=== PATIENT | female | born 1970 | race Caucasian/White ===

== ENCOUNTER 2020-05-02 13:15 | Inpatient (IN) | payer OTHER ==
[2020-05-06 14:42] VITALS: BMI 23.3
[2020-05-07] MEDS ORDERED: Famotidine/PF 20 mg/2ml Vial ONE (06:05)
[2020-05-07] MEDS ORDERED: CeleCOXIB 100 MG CAP ONE (06:05)
[2020-05-07] MEDS ORDERED: Gabapentin 300 MG CAP ONE (06:05)
[2020-05-07 06:53] LABS: #Basophils 0.1 10x3/uL (0.0-0.2); #Eosinphils 0.1 10x3/uL (0.0-0.5); #Monocytes 0.5 10x3/uL (0.0-1.1); #Neutrophils 4.3 10x3/uL (1.5-8.4); %Basophils 0.9 % (0.0-2.0); %Eosinophils 1.9 % (0.0-6.0); %Lymphocytes 28.4 % (18.0-47.0); %Monocytes 6.9 % (0.0-10.0); %Neutrophils 61.8 % (40.0-75.0); Mean Corpuscular HGB CONC 34.2 g/dL (32.0-36.0); Mean Corpuscular Hemoglobin 32.2 pg (27.0-33.0); Mean Corpuscular Volume 94.2 fl (81.6-98.3); Mean Platelet Volume 11.6 fl (7.4-10.4); Platelet Count 182 10x3/uL (150-450); RBC Distribution Width 12.3 % (11.5-14.5); Red Blood Cell (RBC) Count 4.66 10x6/uL (3.90-5.03)
[2020-05-07] MEDS ORDERED: EPINEPHrine 1 MG/ML AMP ONE (06:56)
[2020-05-07] MEDS ORDERED: Bupivacaine PF 0.5% 30 ML VIAL ONE (06:56)
[2020-05-07] MEDS ORDERED: Lidocaine 1% PF 5 ML VIAL ONE (06:57)
[2020-05-07] MEDS ORDERED: Lidocaine 0.5%/Epinephrine 1:200,000 50 ml Vial ONE (06:57)
[2020-05-07] MEDS ORDERED: Dexamethasone 4 mg/ml Vial ONE (06:57)
[2020-05-07] MEDS ORDERED: Rocuronium Bromide 10 MG/ML (10ML VIAL) ONE (06:57)
[2020-05-07] MEDS ORDERED: Ondansetron PF 4 MG/2 ML Vial ONE (06:57)
[2020-05-07] MEDS ORDERED: PROPOFOL 20 ML ONE (06:57)
[2020-05-07] MEDS ORDERED: Fentanyl 250 MCG/5 ML VIAL ONE (06:57)
[2020-05-07] MEDS ORDERED: Midazolam HCl 2 mg/2 ml Vial ONE ×2 (06:57→07:16)
[2020-05-07] MEDS ORDERED: Lidocaine 1% w/Epinephrine 1:100K 20 ML VIAL ONE ×2 (06:58→10:52)
[2020-05-07 07:02] LABS: BHCG - Serum Negative (NEGATIVE); Pregs Control Background? CLEAR/WHITE (CLR/WHITE); Pregs Control Bar Appear? YES (CONTROL BAR)
[2020-05-07] MEDS ORDERED: Scopolamine 1.5 mg/72 hour Patch ONE (07:16)
[2020-05-07] MEDS ORDERED: ePHEDrine 50 MG/ML VIAL ONE ×2 (07:55→08:37)
[2020-05-07] MEDS ORDERED: Ketorolac Tromethamine 30 MG/ML VIAL ONE (07:56)
[2020-05-07] MEDS ORDERED: SUGAMMADEX SODIUM 500 MG/5 ML VIAL ONE (09:54)
[2020-05-07] MEDS ORDERED: traMADol HCl 50 MG TAB PO PRN (11:20)
[2020-05-07] MEDS ORDERED: HYDROcodone/Acetaminophen 10/325 mg Tablet PO PRN (11:20)
[2020-05-07] MEDS ORDERED: Zolpidem Tartrate 5 MG TAB PO PRN (11:20)
[2020-05-07] MEDS ORDERED: Morphine 4 MG/ML VIAL SLOW IVP PRN (11:20)
[2020-05-07] MEDS ORDERED: Promethazine HCl 25 MG/ML VIAL IM PRN (11:20)
[2020-05-07] MEDS ORDERED: Simethicone Chewable 80 MG TAB PO PRN (11:20)
[2020-05-07] MEDS ORDERED: Ondansetron PF 4 MG/2 ML Vial IVP PRN (11:20)
[2020-05-07] MEDS ORDERED: diphenhydrAMINE 25 MG CAP PO PRN (11:20)
[2020-05-07] MEDS ORDERED: GUAIFEN PO PRN (11:23)
[2020-05-07] MEDS ORDERED: PHENYLEPH PO PRN (11:23)
[2020-05-07] MEDS ORDERED: ACETAMINOPHN PO PRN (11:23)
[2020-05-07] MEDS ORDERED: Fentanyl 100 MCG/2 ML VIAL ONE (12:20)
[2020-05-07] MEDS: Morphine 2 MG/ML VIAL SLOW IVP PRN ×2 (13:29→15:32)
[2020-05-07] MEDS: Ketorolac Tromethamine 30 MG/ML VIAL IVP SCH ×2 (13:40→17:29)
[2020-05-07] MEDS: traMADol HCl 50 MG TAB PO PRN (17:33)
[2020-05-07] MEDS: Docusate 100 MG CAP PO SCH (22:07)
[2020-05-08] MEDS: Ketorolac Tromethamine 30 MG/ML VIAL IVP SCH (00:58)
[2020-05-08 06:50] LABS: Hemoglobin 11.8 g/dL (12.0-15.5); Mean Corpuscular Hemoglobin 32.7 pg (27.0-33.0); Mean Corpuscular Volume 96.1 fl (81.6-98.3); Mean Platelet Volume 12.4 fl (7.4-10.4); Platelet Count 139 10x3/uL (150-450); RBC Distribution Width 12.5 % (11.5-14.5); Red Blood Cell (RBC) Count 3.61 10x6/uL (3.90-5.03); White Blood Cell (WBC) Count 11.3 10x3/uL (3.5-10.5)
[2020-05-08] MEDS ORDERED: Ibuprofen 800 MG TAB PO SCH (07:00)
[2020-05-08] MEDS: Docusate 100 MG CAP PO SCH (07:49)
[2020-05-08] MEDS: traMADol HCl 50 MG TAB PO PRN (09:56)
[2020-05-08 11:42] VITALS: BP 93/54; TEMP 98.2
== END 2020-05-08 12:15 | disposition home or self-care (01) | DRG 743 ==
LOC: CSHTELE 05-07 06:13 → CSHPP 05-07 11:53 → EDSTATUS 05-07 13:15
PROVIDERS: ADMIT Obstetrics & Gynecology; ATTEND Obstetrics & Gynecology
PROC: 3E033XZ Introduction of Vasopressor into Peripheral Vein, Percutaneous Approach (ICD-10-PCS; principal; 2020-05-07)
PROC: 0UT94ZZ Resection of Uterus, Percutaneous Endoscopic Approach (ICD-10-PCS; 2020-05-07)
PROC: 0UB24ZZ Excision of Bilateral Ovaries, Percutaneous Endoscopic Approach (ICD-10-PCS; 2020-05-07)
PROC: 0UB74ZZ Excision of Bilateral Fallopian Tubes, Percutaneous Endoscopic Approach (ICD-10-PCS; 2020-05-07)
PROC: 0USG4ZZ Reposition Vagina, Percutaneous Endoscopic Approach (ICD-10-PCS; 2020-05-07)
PROC: 8E0W4CZ Robotic Assisted Procedure of Trunk Region, Percutaneous Endoscopic Approach (ICD-10-PCS; 2020-05-07)
PROC: 0JQC3ZZ Repair Pelvic Region Subcutaneous Tissue and Fascia, Percutaneous Approach (ICD-10-PCS; 2020-05-07)
PROC: 0TJB8ZZ Inspection of Bladder, Via Natural or Artificial Opening Endoscopic (ICD-10-PCS; 2020-05-07)
DX: N81.4 Uterovaginal prolapse, unspecified (principal); F17.210 Nicotine dependence, cigarettes, uncomplicated; Z20.822 Contact with and (suspected) exposure to COVID-19; N39.3 Stress incontinence (female) (male); Z87.01 Personal history of pneumonia (recurrent); Z98.51 Tubal ligation status
CPT/HCPCS: 36415; 84703; 85025; 85027; 86850; 86900; 86901; 88307; C1781; J0171; J0690; J1100; J1885; J2001; J2250; J2270; J2405; J2704; J3010; J3490; S0020; S0028